=== PATIENT | male | born 2000 | race Hispanic/Latino ===

== ENCOUNTER 2018-02-07 00:17 | Emergency (ER) | payer OTHER ==
[2018-02-07 01:29] LABS: Absolute Lymphocytes (CBC) 3.5 K/uL (0.7-4.9); Absolute Monocytes 0.9 K/uL (0.1-1.3); Absolute Neutrophil 7.4 K/uL (1.8-8.0); Basophils % 0.5 % (0-1.3); Eosinophils % 1.5 % (0-4.4); Hematocrit 48.2 % (39.6-49.0); Lymphocytes % 29.5 % (15.3-44.8); MPV 8.1 fL (7.6-11.3); Monocytes % 7.2 % (3.3-12.3); RBC Red Blood Cell Count 5.55 M/uL (4.33-5.43)
[2018-02-07 01:48] LABS: ALT/SGPT 37 U/L (12-78); AST/SGOT 22 U/L (15-37); Albumin 4.2 g/dL (3.4-5.0); Alkaline Phosphatase 97 U/L (45-117); BUN Blood Urea Nitrogen 20 mg/dL (7-18); Bicarbonate 28 mmol/L (21-32); Bilirubin Direct 0.2 mg/dL (0-0.2); Bilirubin Total 0.7 mg/dL (0.2-1.0); Glucose Level 114 mg/dL (74-106); Lipase 780 U/L (73-393); Potassium 3.9 mmol/L (3.5-5.1); Protein, Total 7.4 g/dL (6.4-8.2); Sodium Level 140 mmol/L (136-145)
[2018-02-07 02:08] LABS: Urine Blood NEGATIVE (NEG); Urine Glucose NEGATIVE (NEG); Urine Protein NEGATIVE (NEG); Urine Specific Gravity 1.025 (1.005-1.030); Urine pH 6.5 (5.0-7.0)
--- NOTE | 2018-02-07 05:13 | EDPHYS ---
Physician Documentation [facility] Name: Vishnu Duckworth Jr Age: 17 yrs Sex: Male : 2000 Arrival Date: 02/07/2018 Time: 00:21 Bed 5 Private MD: ED Physician Sanjiv Krishnan HPI: 02/07 01:19 This 17 yrs old Male presents to ER via Ambulatory with complaints of Flank jr8 Pain. 01:19 The patient complains of pain in the left flank. The pain does not radiate. Onset: The jr8 symptoms/episode began/occurred acutely, today. Modifying factors: The symptoms are alleviated by nothing. the symptoms are aggravated by nothing. Associated signs and symptoms: The patient has no apparent associated signs or symptoms. Severity of pain: At its worst the pain was mild in the emergency department the pain is unchanged. The patient has not experienced similar symptoms in the past. The patient has not recently seen a physician. 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 - Social history:: Smoking status: Patient/guardian denies using tobacco. - Ebola Screening: : No symptoms or risks identified at this time. ROS: 01:19 Eyes: Negative for injury, pain, redness, and discharge, ENT: Negative for injury, jr8 pain, and discharge, Neck: Negative for injury, pain, and swelling, Cardiovascular: Negative for chest pain, palpitations, and edema, Respiratory: Negative for shortness of breath, cough, wheezing, and pleuritic chest pain, Abdomen/GI: Negative for abdominal pain, nausea, vomiting, diarrhea, and constipation, MS/Extremity: Negative for injury and deformity, Skin: Negative for injury, rash, and discoloration, Neuro: Negative for headache, weakness, numbness, tingling, and seizure. 01:19 Back: Positive for flank pain, on the left. Exam: 01:19 Eyes: Pupils equal round and reactive to light, extra-ocular motions intact. Lids and jr8 lashes normal. Conjunctiva and sclera are non-icteric and not injected. Cornea within normal limits. Periorbital areas with no swelling, redness, or edema. ENT: Nares patent. No nasal discharge, no septal abnormalities noted. Tympanic membranes are normal and external auditory canals are clear. Oropharynx with no redness, swelling, or masses, exudates, or evidence of obstruction, uvula midline. Mucous membranes moist. Neck: Trachea midline, no thyromegaly or masses palpated, and no cervical lymphadenopathy. Supple, full range of motion without nuchal rigidity, or vertebral point tenderness. No Meningismus. Cardiovascular: Regular rate and rhythm with a normal S1 and S2. No gallops, murmurs, or rubs. Normal PMI, no JVD. No pulse deficits. Respiratory: Lungs have equal breath sounds bilaterally, clear to auscultation and percussion. No rales, rhonchi or wheezes noted. No increased work of breathing, no retractions or nasal flaring. Back: No spinal tenderness. No costovertebral tenderness. Full range of motion. Skin: Warm, dry with normal turgor. Normal color with no rashes, no lesions, and no evidence of cellulitis. MS/ Extremity: Pulses equal, no cyanosis. Neurovascular intact. Full, normal range of motion. Neuro: Awake and alert, GCS 15, oriented to person, place, time, and situation. Cranial nerves II-XII grossly intact. Motor strength 5/5 in all extremities. Sensory grossly intact. Cerebellar exam normal. Normal gait. 01:19 Abdomen/GI: Inspection: scar(s), are noted in the , Bowel sounds: active, all quadrants, Palpation: soft, in all quadrants, mild abdominal tenderness, in the anterior aspect of left lateral abdomen and posterior aspect of left lateral abdomen, mass, is not appreciated, rebound tenderness, is not appreciated, voluntary guarding, is not appreciated, involuntary guarding, is not appreciated, no appreciated organomegaly, Indicators: McBurney's point is not tender, Baig's sign is negative, Rovsing's sign is negative, Liver: tenderness, is not appreciated. Vital Signs: 00:34 BP 139 / 82; Pulse 92; Resp 16 S; Temp 98.3(O); Pulse Ox 99% on R/A; Weight 46.72 kg bb (R); Height 4 ft. 11 in. (149.86 cm) (R); Pain 9/10; 00:34 Body Mass Index 20.80 (46.72 kg, 149.86 cm) bb MDM: 00:26 Patient medically screened. [facility] 04:07 Transition of care: After a detail discussion of the patient's case, care is jr8 transferred to Sanjiv Krishnan MD. 05:10 Data reviewed: vital signs, nurses notes, lab test result(s), radiologic studies. gs Response to treatment: the patient's symptoms have resolved after treatment, and as a result, I will discharge patient. ED course: pt seen and examined non surgical abdomen no vomiting. 02/07 00:39 Order name: Basic Metabolic Panel 8 02/07 00:39 Order name: CBC with Diff; Complete Time: jr8 02/07 00:39 Order name: Creatinine for Radiology; Complete Time: jr8 02/07 00:39 Order name: Hepatic Function; Complete Time: :49 jr8 02/07 00:39 Order name: Lipase; Complete Time: jr8 02/07 00:39 Order name: Basic Metabolic Panel; Complete Time: 01:49 EDKS 02/07 00:39 Order name: IV Saline Lock; Complete Time: :11 jr8 02/07 00:39 Order name: Labs collected and sent; Complete Time: :11 jr8 02/07 01:01 Order name: Urine Dipstick--Ancillary (enter results); Complete Time: 02:16 ak1 02/07 01:50 Order name: CT Abd/Pelvis - W/Contrast; Complete Time: 15:16 Administered Medications: No medications were administered Disposition: 05:10 Co-signature as Attending Physician, Sanjiv Krishnan MD. Disposition: 02/07/18 05:12 Discharged to Home. Impression: Abdominal and pelvic pain. - Condition is Stable. - Discharge Instructions: Clear Liquid Diet, Adult, Abdominal Pain, Adult, Svfy-wi-Asen. - Prescriptions for Zofran 4 mg Oral Tablet - take 1 tablet by ORAL route every 12 hours As needed; 6 tablet. - Medication Reconciliation Form, Thank You Letter, Antibiotic Education, Prescription Opioid Use form. - Follow up: Private Physician; When: 2 - 3 days; Reason: Re-evaluation by your physician. Signatures: Dispatcher [employer] Becca Norton, RN RN Bandar Azevedo PA PA jr8 Meaghan Horton RN RN ak1 Sanjiv Krishnan MD MD gs Corrections: (The following items were deleted from the chart) 05:24 05:12 02/07/2018 05:12 Discharged to Home. Impression: Abdominal and pelvic pain. ak1 Condition is Stable. Forms are Medication Reconciliation Form, Thank You Letter, Antibiotic Education, Prescription Opioid Use. Follow up: Private Physician; When: 2 - 3 days; Reason: Re-evaluation by your physician. gs
--- NOTE | 2018-02-07 05:13 | ER ---
Nurse's Notes [facility] Name: Vishnu Duckworth Jr Age: 17 yrs Sex: Male : 2000 Arrival Date: 02/07/2018 Time: 00:21 Bed 5 Private MD: Diagnosis: Abdominal and pelvic pain Presentation: 02/07 00:33 Presenting complaint: Mother states: pt is c/o left flank pain starting today which bb worsened tonight pt denies dysuria. Transition of care: patient was not received from another setting of care. Onset of symptoms was February 07, 2018. Risk Assessment: Do you want to hurt yourself or someone else? Patient reports no desire to harm self or others. Initial Sepsis Screen: Does the patient meet any 2 criteria? No. Patient's initial sepsis screen is negative. Does the patient have a suspected source of infection? No. Patient's initial sepsis screen is negative. Care prior to arrival: None. 00:33 Method Of Arrival: Ambulatory bb 00:33 Acuity: BROWN 3 bb Triage Assessment: 01:02 General: Appears in no apparent distress. Behavior is calm, cooperative. Pain: ak1 Complains of pain in left side pain. EENT: No signs and/or symptoms were reported regarding the EENT system. Neuro: No deficits noted. Cardiovascular: No deficits noted. Respiratory: No deficits noted. GI: Abdomen is flat, non-distended, Bowel sounds present X 4 quads. Abd is soft and non tender X 4 quads. : No signs and/or symptoms were reported regarding the genitourinary system. Derm: No signs and/or symptoms reported regarding the dermatologic system. Musculoskeletal: Range of motion: intact in all extremities. 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 - Social history:: Smoking status: Patient/guardian denies using tobacco. - Ebola Screening: : No symptoms or risks identified at this time. Screenin:01 Abuse screen: Denies threats or abuse. Denies injuries from another. Nutritional ak1 screening: No deficits noted. Tuberculosis screening: No symptoms or risk factors identified. Fall Risk None identified. Assessment: 01:03 Reassessment: Patient appears in no apparent distress at this time. No changes from ak1 previously documented assessment. see triage assessment. Vital Signs: 00:34 BP 139 / 82; Pulse 92; Resp 16 S; Temp 98.3(O); Pulse Ox 99% on R/A; Weight 46.72 kg bb (R); Height 4 ft. 11 in. (149.86 cm) (R); Pain 9/10; 00:34 Body Mass Index 20.80 (46.72 kg, 149.86 cm) bb ED Course: 00:21 Patient arrived in ED. al2 00:25 Meaghan Horton, RN is Primary Nurse. ak1 00:26 Bandar Rivera PA is PHCP. jr8 00:26 Sanjiv Krishnan MD is Attending Physician. jr8 00:33 Triage completed. bb 00:34 Arm band placed on Patient placed in an exam room, on a stretcher, on pulse oximetry. bb Family accompanied patient. 01:02 Patient has correct armband on for positive identification. Placed in gown. Bed in low ak1 position. Call light in reach. Side rails up X 1. Pulse ox on. NIBP on. 01:12 Initial lab(s) drawn, by ED staff, sent to lab. Urine collected: clean catch specimen, ak1 clear. Inserted saline lock: 22 gauge in right forearm, using aseptic technique. Blood collected. 03:[address] via wheelchair. kw1 04:05 CT completed. Patient tolerated procedure well. Patient moved back from [place]. kw1 04:08 CT Abd/Pelvis - W/Contrast In Process Unspecified. EDMS 05:21 No provider procedures requiring assistance completed. IV discontinued, intact, ak1 bleeding controlled, No redness/swelling at site. Pressure dressing applied. Administered Medications: No medications were administered Outcome: 05:12 Discharge ordered by . gs 05:21 Discharged to home ambulatory, with family. ak1 05:21 Condition: good 05:21 Discharge instructions given to family, Instructed on discharge instructions, follow up and referral plans. no drinking with medication, no driving heavy equipment, medication usage, Demonstrated understanding of instructions, follow-up care, medications, Prescriptions given X 1. 05:24 Patient left the ED. ak1 Signatures: Dispatcher [employer] EDBecca Delgadillo RN RN Bandar Azevedo PA PA jr8 Meaghan Horton RN RN ak1 Sanjiv Krishnan MD MD Teresa Forte1 Neetu Angulo
[2018-02-07 05:40] VITALS: BP 139/82; TEMP 98.3; O2SAT 99
--- NOTE | 2018-02-07 10:28 | RAD REPORT ---
EXAM DESCRIPTION: CTAbdomen Pelvis W Contrast - 02/07/2018 5:31 am CLINICAL HISTORY: Abdominal pain. iv only;Abd pain COMPARISON: CT ABD PELVIS W CONTRAST dated 07/08/2011 TECHNIQUE: Biphasic CT imaging of the abdomen and pelvis was performed with 100 ml non-ionic IV cont rast. All CT scans are performed using dose optimization technique as appropriate and may include automated exposure control or mA/KV adjustment according to patient size. FINDINGS: The lung bases are clear.Small paraesophageal hiatal hernia. The liver, spleen, pancreas, adrenal glands and kidneys are within normal limits. No bowel obstruction, free air, free fluid or abscess. The appendix is normal. No evidence of signi ficant lymphadenopathy. No suspicious bony findings. IMPRESSION: No acute intra-abdominal or pelvic finding.
== END 2018-02-07 05:24 | disposition home or self-care (01) ==
LOC: ER 00:17
DX: R10.2 Pelvic and perineal pain (principal)
CPT/HCPCS: 36415; 74177; 80048; 80076; 81003; 83690; 85025; 99284; Q9967

== ENCOUNTER 2019-04-21 10:45 | Emergency (ER) | payer OTHER ==
--- OUTSIDE RECORDS SUMMARY | 2019-04-21 10:47 | XMS REPORT ---
:2000 [facility] [address] [place] [address] Care Team Providers Name Role Phone DR ZEV SCHWARZ Unavailable Unavailable BA, DR MONTANO Unavailable Unavailable AGUILERA, DR THURSTON Unavailable Unavailable SERGO CARDENAS Unavailable Unavailable Problems This patient has no known problems. Allergies, Adverse Reactions, Alerts This patient has no known allergies or adverse reactions. Medications This patient has no known medications. Encounters Start End Encounter Admission Attending Care Care Encounter Date/Time Date/Time Type Type Clinicians Facility Department ID 2019-03-21 2019-03-21 Outpatient E [facility] [id number] 18:26:00 18:50:00 ZEV 2019-01-22 2019-01-22 Outpatient E [facility] [id number] 10:06:00 11:13:00 2016-11-01 2016-11-01 Emergency E EBRTRAND AGUILERA [facility] [id number] 14:00:00 15:00:00 Results Test Description Test Time Test Comments Text Results Atomic Results Result Comments XR SPINE LUMBAR COMPLETE 2019-01-22 10:34:39 EXAM: Lumbar spine series, 5 *OW* viewsDictation location: [id number]: PainCOMPARISON: None.DISCUSSION: Frontal, bilateral oblique, spot lateral, and lateral views of thelumbar spine are submitted. There are 5 lumbar-type [id number] vertebralbodies. No fracture or osteolytic or osteoblastic lesions are identified. Discspace height is well preserved. Facet joints are unremarkable. No spondylolysisor spondylolisthesis is seen. Straightening of lumbar lordosis is noted.IMPRESSION: Straightening of lumbar lordosis. Otherwise, unremarkable lumbarspine radiographs. URINALYSIS W/O MICROSCOPICOW 2019-01-22 10:27:00 Test Item Value Reference Range Comments COLOR (test code=COLU) Yellow YELLOW CLARITY (test code=CLA) Clear CLEAR GLUCOSE UR (test code=UA GLUCOSE) Negative NEGATIVE BILI UR (test code=BILE) Negative NEGATIVE KETONES UR (test code=DEBRA) Negative NEGATIVE SP GRAVITY (test code=SPGR) 1.020 1.005-1.030 PH UR (test code=PH) 7.0 4.5-8.0 PROTEIN UR (test code=PU) Negative NEGATIVE NITRITE UR (test code=NITRITE) Negative NEGATIVE UROBIL UR (test code=GUROQ) 2.0 E.U./dL UROBIL UR (test code=GUROQC) UROBILINOGEN REFERENCE RANGE 0.2 - 1.0 EU/dL BLOOD UR (test code=UA BLOOD) Negative NEGATIVE LEUK ES UR (test code=LEUK) Negative NEGATIVE CT ABDOMEN AND PELVIS WITH [id number] 13:08:17LOCATION: [id number]: 15- year-old male presents with right lower quadrant abdominal pain.COMMENT: Field 3Axial CT imaging of this patient's abdomen and pelvis was obtained during IVcontrast injection. Coronal and sagittal soft tissue reconstructions wereincluded. An older examination of 10/14/14 is available for comparison.One or more of the following dose reduction techniques are used: Automatedexposure control, adjustment of the mA and/or kV according the patient size,and/or utilization of iterative reconstruction technique.DLP: 780 mGy-cmCONTRAST: 98 mL of Omnipaque 300 nonionic contrast was injected patient's righthand. Serum creatinine level was 0.9.FINDINGS:The lung bases are clear. The cardiac silhouette is unremarkable.The liver, spleen, pancreas, adrenal glands, kidneys , and gallbladder areunremarkable.The upper intestinal tract and small intestine are unremarkable. Anormal-appearing appendix is seen.The colon is unremarkable.There is no ascites or adenopathy seen in the abdomen or thepelvis.In the pelvis the urinary bladder, prostate gland, seminal vesicles areunremarkable.The vascular anatomy is unremarkable.The musculoskeletal anatomy is unremarkable.IMPRESSION:Unremarkable CT examination of the abdomen and pelvis.AMYLASE AND [id number] 12:28:00 Test Item Value Reference Range Comments AMYLASE (test code=10A) 58 U/L 28-100 LIPASE (test code=60A) 63 IU/L 73-393 COMPREHENSIVE METABOLIC [id number] 12:28:00 Test Item Value Reference Range Comments GLUCOSE (test code=06D) 92 mg/dL 75-100 SODIUM (test code=01A) 143 mmol/L 136-145 POTASSIUM (test code=01B) 4.9 mmol/L 3.6-5.1 CHLORIDE (test code=04A) 105 mmol/L 98-107 CO2 (test code=02A) 29 mmol/L 22-32 ANION GAP (test code=ANG) 13.9 mmol/L BUN (test code=05D) 14 mg/dL 7-18 CREATININE (test code=03E) 0.9 mg/dL 0.7-1.3 BUN/CREA R (test code=BCR) 15 12-20 CALCIUM (test code=09D) 8.9 mg/dL 8.3-9.5 BILI TOTAL (test code=11A) 1.2 mg/dL 0.2-1.0 PROTEIN (test code=07D) 7.3 g/dL 6.0-8.0 ALBUMIN (test code=08D) 4.1 g/dL 3.5-4.8 GLOBULIN (test code=GLB) 3.2 g/dL 1.5-3.8 ALB/GLOB (test code=AGRR) 1.3 1.0-2.6 ALK PHOS (test code=35A) 95 IU/L 42-121 AST (test code=30A) 28 IU/L <=42 ALT (test code=31A) 26 IU/L <=78 URINALYSIS WITH [id number] 12:12:00 Test Item Value Reference Range Comments COLOR (test code=COLU) YELLOW YELLOW CLARITY (test code=CLA) CLOUDY CLEAR GLUCOSE UR (test code=UA GLUCOSE) NEGATIVE NEGATIVE BILI UR (test code=BILE) NEGATIVE NEGATIVE KETONES UR (test code=DEBRA) NEGATIVE NEGATIVE SP GRAVITY (test code=SPGR) 1.018 1.005-1.030 PH UR (test code=PH) 7.5 4.5-8.0 PROTEIN UR (test code=PU) TRACE NEGATIVE UROBIL UR (test code=UROQ) 1.0 EU/dL 0.2-1.0 NITRITE UR (test code=NITRITE) NEGATIVE NEGATIVE BLOOD UR (test code=UA BLOOD) NEGATIVE NEGATIVE LEUK ES UR (test code=LEUK) 1+ NEGATIVE WBC UR (test code=UWBC) 2 /HPF 0-3 RBC UR (test code=URBC) 0 /HPF 0-2 EPITH UR (test code=UEPC) FEW /LPF NONE BACTERIA UR (test code=UBACT) MODERATE /HPF NONE CAST UR (test code=CAST) /LPF NONE CRYSTAL UR (test code=CRYU) / LPF NONE MUCUS UR (test code=MUC) / HPF NONE AMORPH UR (test code=JUAN CARLOS) / HPF NONE TRICH UR (test code=UTRICH) /HPF NONE YEAST UR (test code=UY) /HPF NONE SPERM UR (test code=USPERM) /HPF NONE CBC (INCLUDES AUTOMATED DIFFERENTIAL)2016-08-09 12:10:00 Test Item Value Reference Range Comments WBC (test code=WBC) 9.5 10\S\3/uL 4.5-13.0 RBC (test code=RBC) 5.39 10\S\6/uL 4.10-5.20 HGB (test code=HBG) 16.5 g/dL 11.5-15.5 HCT (test code=HCT) 45.3 % 35.0-45.0 MCV (test code=MCV) 84.0 fL 77.0-95.0 MCH (test code=MCH) 30.6 pg 25.0-33.0 MCHC (test code=MCHC) 36.4 g/dL 31.0-37.0 RDW (test code=RDW) 12.1 % 11.5-14.5 PLT (test code=PLT) 281 10\S\3/uL 130-400 MPV (test code=MPV) 9.8 fL 9.4-12.4 NEUTROP # (test code=NE#) 6.5 10\S\3/uL 2.0-8.0 LYMPH # (test code=LY#) 2.3 10\S\3/uL 1.2-4.0 MONOCYTE # (test code=MO#) 0.6 10\S\3/uL 0.0-1.1 EOSINOPH # (test code=EO#) 0.1 10\S\3/uL 0.0-0.7 BASOPHIL # (test code=BA#) 0.1 10\S\3/uL 0.0-0.3 IG # (test code=IG#) 0.03 10\S\3/uL 0.00-0.06 NRBC # (test code=NRBC#) 0.00 10\S\3/uL 0.00-0.01 NEUTROPH % (test code=NE%) 68.1 % 35.0-73.0 LYMPH % (test code=LY%) 24.0 % 20.0-55.0 MONO % (test code=MO%) 6.2 % 2.5-10.0 EOSINOPH % (test code=EO%) 0.9 % 0.0-5.0 BASOPHIL % (test code=BA%) 0.5 % 0.0-2.0 IG % (test code=IG%) 0.3 % 0.0-0.8 NRBC% (test code=NRBC%) 0.0 % 0.0-0.2 MANDIFF (test code=MDIFF) NO NO RBC MORPH (test code=RBCMOR) NORMAL
[2019-04-21] MEDS ORDERED: LIDOCAINE 1% MPF 30 ML VIAL ONE (11:44)
--- NOTE | 2019-04-21 12:19 | EDPHYS ---
Physician Documentation [facility] Name: Vishnu Duckworth Jr Age: 18 yrs Sex: Male : 2000 Arrival Date: 04/21/2019 Time: 10:49 Bed 25 Private MD: ED Physician Karlo Latham HPI: 04/20 11:15 This 18 yrs old Male presents to ER via Ambulatory with complaints of Ingrown cp Toenail. 11:15 Onset: The symptoms/episode began/occurred at an unknown time. Associated signs and cp symptoms: Pertinent negatives: fever. Historical: - Allergies: 11:02 No Known Allergies; aj1 - Home Meds: 11:02 None [Active]; aj1 - PMHx: 11:02 Premature ; aj1 - PSHx: 11:02 "surgery for twisted intestines"; aj1 - Immunization history:: Flu vaccine is up to date. - Social history:: Smoking status: Patient denies any tobacco usage or history of. ROS: 11:20 Eyes: Negative for injury, pain, redness, and discharge. cp 11:20 Constitutional: Negative for fever, poor PO intake. 11:20 Cardiovascular: Negative for chest pain. 11:20 Respiratory: Negative for cough. 11:20 MS/extremity: Positive for pain, of the right great toe, Negative for injury or acute deformity, decreased range of motion. 11:20 All other systems are negative. Exam: 11:30 Constitutional: The patient appears in no acute distress, alert, awake, non-toxic, well cp developed, well nourished. 11:30 Musculoskeletal/extremity: Extremities: grossly normal except: noted in the right great toe: erythema, pain, swelling, tenderness, ROM: full active range of motion, in the right great toe, Perfusion: the extremity is normally perfused throughout, Sensation intact. 11:30 Skin: cellulitis, that is mild, on the along lateral aspect nail right great toe. cp Vital Signs: 10:59 BP 140 / 71; Pulse 96; Resp 18; Temp 97.5; Pulse Ox 98% on R/A; Weight 47.63 kg (R); aj1 Height 4 ft. 11 in. (149.86 cm) (R); Pain 0/10; 10:59 Body Mass Index 21.21 (47.63 kg, 149.86 cm) aj1 MDM: 11:04 Patient medically screened. cp 12:00 Differential diagnosis: abscess, cellulitis, ingrown nail. cp 12:18 Data reviewed: vital signs, nurses notes, and as a result, I will discharge patient. cp 12:18 Counseling: I had a detailed discussion with the patient and/or guardian regarding: the cp historical points, exam findings, and any diagnostic results supporting the discharge/admit diagnosis, the need for outpatient follow up, a family practitioner, to return to the emergency department if symptoms worsen or persist or if there are any questions or concerns that arise at home. Response to treatment: the patient's symptoms have markedly improved after treatment. 04/20 11:10 Order name: I\\T\\D Setup; Complete Time: 11:45 cp 04/20 12:18 Order name: Wound dressing; Complete Time: 12:42 cp Administered Medications: 11:55 Drug: Marcaine (0.5 %) 10 ml {Note: administered by PA. Laura} Volume: 10 ml; Route: aj1 Infiltration; 11:55 Drug: Lidocaine (1 %) 10 ml {Note: Administered by PA. Laura} Volume: 5 ml; Route: aj1 Infiltration; Disposition: 12:50 Chart complete. cp Disposition: 04/21/19 12:19 Discharged to Home. Impression: Ingrowing nail - right great toe. - Condition is Stable. - Discharge Instructions: Ingrown Toenail, Fingernail or Toenail Removal, Adult, Fingernail or Toenail Removal, Care After. - Prescriptions for Ibuprofen 600 mg Oral Tablet - take 1 tablet by ORAL route every 6 hours As needed take with food; 30 tablet. Bactrim DS 800- 160 mg Oral Tablet - take 1 tablet by ORAL route every 12 hours for 10 days; 20 tablet. - Medication Reconciliation Form, Thank You Letter, Antibiotic Education, Prescription Opioid Use form. - Follow up: Private Physician; When: 2 - 3 days; Reason: Wound Recheck. - Problem is new. - Symptoms have improved. Addendum: 04/24/2019 10:44 Co-signature as Attending Physician, Karlo Latham MD I agree with the assessment and k dr plan of care. Signatures: Wilda Bernardo RN RN aj1 Rittger, Karlo, MD Florentin Skaggs PA PA cp Corrections: (The following items were deleted from the chart) 04/20 12:44 12:19 04/21/2019 12:19 Discharged to Home. Impression: Ingrowing nail - right great aj1 toe. Condition is Stable. Forms are Medication Reconciliation Form, Thank You Letter, Antibiotic Education, Prescription Opioid Use. Follow up: Private Physician; When: 2 - 3 days; Reason: Wound Recheck. Problem is new. Symptoms have improved. cp
--- NOTE | 2019-04-21 12:19 | ER ---
Nurse's Notes [facility] Name: Vishnu Duckworth Jr Age: 18 yrs Sex: Male : 2000 Arrival Date: 04/21/2019 Time: 10:49 Bed 25 Private MD: Diagnosis: Ingrowing nail-right great toe Presentation: 04/20 10:59 Chief complaint: Parent and/or Guardian states: He has an ingrown toe nail, today they aj1 noticed some blood on pus draining from it. Coronavirus screen: The patient has NOT traveled to a country currently being monitored by the [facility] within the last 14 days. Ebola Screen: Patient denies travel to an Ebola-affected area in the 21 days before illness onset. Initial Sepsis Screen: Does the patient meet any 2 criteria? HR > 90 bpm. No. Patient's initial sepsis screen is negative. Does the patient have a suspected source of infection? Yes: Other: infected ingrown toenail. Risk Assessment: Do you want to hurt yourself or someone else? Patient reports no desire to harm self or others. 10:59 Method Of Arrival: Ambulatory aj1 10:59 Acuity: BROWN 4 aj1 Triage Assessment: 11:02 General: Appears in no apparent distress. comfortable, Behavior is calm, cooperative, aj1 appropriate for age. Pain: Denies pain. Historical: - Allergies: 11:02 No Known Allergies; aj1 - Home Meds: 11:02 None [Active]; aj1 - PMHx: 11:02 Premature ; aj1 - PSHx: 11:02 "surgery for twisted intestines"; aj1 - Immunization history:: Flu vaccine is up to date. - Social history:: Smoking status: Patient denies any tobacco usage or history of. Screenin:05 Abuse screen: Denies threats or abuse. Denies injuries from another. Nutritional aj1 screening: No deficits noted. Tuberculosis screening: No symptoms or risk factors identified. 12:43 Fall Risk None identified. aj1 Assessment: 11:05 General: Appears in no apparent distress. comfortable, Behavior is calm, cooperative, aj1 appropriate for age. Pain: Denies pain. Neuro: Level of Consciousness is awake, alert, obeys commands, Oriented to person, place, time, situation. Cardiovascular: Patient's skin is warm and dry. Respiratory: Airway is patent Respiratory effort is even, unlabored, Respiratory pattern is regular, symmetrical. GI: No signs and/or symptoms were reported involving the gastrointestinal system. : No signs and/or symptoms were reported regarding the genitourinary system. EENT: No signs and/or symptoms were reported regarding the EENT system. Derm: Skin is pink, warm \\T\\ dry. normal, ingrown toe nail to right great toe. Musculoskeletal: No signs and/or symptoms reported regarding the musculoskeletal system. Circulation, motion, and sensation intact. 12:05 Reassessment: Patient appears in no apparent distress at this time. No changes from aj1 previously documented assessment. Patient and/or family updated on plan of care and expected duration. Pain level reassessed. Patient is alert, oriented x 3, equal unlabored respirations, skin warm/dry/pink. Vital Signs: 10:59 BP 140 / 71; Pulse 96; Resp 18; Temp 97.5; Pulse Ox 98% on R/A; Weight 47.63 kg (R); aj1 Height 4 ft. 11 in. (149.86 cm) (R); Pain 0/10; 10:59 Body Mass Index 21.21 (47.63 kg, 149.86 cm) aj1 ED Course: 10:49 Patient arrived in ED. rg4 10:59 Wilda Bernardo, RN is Primary Nurse. aj1 11:00 Triage completed. aj1 11:02 Arm band placed on. aj1 11:03 Florentin Gaytan PA is PHCP. cp 11:03 Karlo Latham MD is Attending Physician. cp 11:05 Patient has correct armband on for positive identification. Bed in low position. Call aj1 light in reach. Side rails up X 1. 11:05 No provider procedures requiring assistance completed. aj1 12:43 Patient did not have IV access during this emergency room visit. aj1 Administered Medications: 11:55 Drug: Marcaine (0.5 %) 10 ml {Note: administered by PA. Laura} Volume: 10 ml; Route: aj1 Infiltration; 11:55 Drug: Lidocaine (1 %) 10 ml {Note: Administered by PA. Laura} Volume: 5 ml; Route: aj1 Infiltration; Outcome: 12:19 Discharge ordered by . cp 12:43 Discharged to home ambulatory. aj1 12:43 Condition: good 12:43 Discharge instructions given to patient, family, Instructed on discharge instructions, follow up and referral plans. medication usage, Demonstrated understanding of instructions, follow-up care, medications, Prescriptions given X 1. 12:44 Patient left the ED. aj1 Signatures: Wilda Bernardo RN RN aj1 Florentin Gaytan PA PA cp Garcia, Rubi rg4 Corrections: (The following items were deleted from the chart) 11:55 11:55 Lidocaine (1 %) 10 ml 5 ml Infiltration 5 ml aj1 aj1
[2019-04-21 12:49] VITALS: BP 140/71; TEMP 97.5; O2SAT 98
== END 2019-04-21 12:44 | disposition home or self-care (01) ==
LOC: ER 10:45
DX: L60.0 Ingrowing nail (principal)
CPT/HCPCS: 99283

== ENCOUNTER 2022-01-22 19:50 | Emergency (ER) | payer OTHER ==
--- OUTSIDE RECORDS SUMMARY | 2022-01-22 19:54 | XMS REPORT | Continuity of Care Document ---
:2000 Author Organization [facility] t Address [address] [place] [address] Care Team Providers Name Role Phone JANE AGUILERA Primary Care Physician Unavailable ERBEKAH, DR VALENCIA Attending Clinician Unavailable CHAN LOCKE Attending Clinician Unavailable MARY, DR MONTANO Attending Clinician Unavailable DR SERGO CARDENAS Attending Clinician Unavailable KARISHMA, DR BROTHERS Attending Clinician Unavailable WILLY, DR THURSTON Attending Clinician Unavailable REBEKAH, DR VALENCIA Admitting Clinician Unavailable CHAN LOCKE Admitting Clinician Unavailable MARY, DR MONTANO Admitting Clinician Unavailable RONALD, DR SERGO [place] Admitting Clinician Unavailable KARISHMA, DR BROTHERS Admitting Clinician Unavailable WILLY, DR THURSTON Admitting Clinician Unavailable Payers Payer Name Policy Type Policy Number Effective Date Expiration Date S ource 0733 [id number] 2021 00:00:00 0775 [id number] 2016 00:00:00 Problems This patient has no known problems. Allergies, Adverse Reactions, Alerts Allergy Allergy Status Severity Reaction(s) Onset Inactive Treating Comm ents Source Name Type Date Date Clinician No Known DA Active Unknown [facility] Allergie 10-14 Medical s 00:00: Center 00 Medications This patient has no known medications. Vital Signs Vital Name Observation Time Observation Value Comments Source Height 2021-08-27 11:24:00 149.86 CM Weight 2021-08-27 11:24:00 51.7 KG Height 2021-02-08 17:03:00 147.32 CM Weight 2021-02-08 17:03:00 47.62 KG Height 2020-12-13 11:48:00 149.86 CM Weight 2020-12-13 11:48:00 54.43 KG Weight 2019-05-17 16:44:00 48.98 KG Weight 2019-04-29 14:43:00 47.62 KG Height 2019-03-21 18:33:00 160.02 CM Weight 2019-03-21 18:33:00 48.5 KG Height 2019-01-22 10:06:00 147.32 CM Weight 2019-01-22 10:06:00 47.62 KG Procedures This patient has no known procedures. Encounters Start End Encounter Admission Attending Care Care Encounter Source Date/Time Date/Time Type Type Clinicians Facility Department ID 2021-08-27 2021-08-27 Outpatient E REBEKAH [facility] [id number] 11:08:00 12:00:00 [facility] 2021-08-22 2021-08-22 Outpatient C CORNELIA [facility] [id number] 08:47:00 23:59:00 [facility] 2021-02-08 2021-02-08 Outpatient E BA, CHARMAINE [facility] [id number] 16:46:00 18:19:00 [facility] 2020-12-13 2020-12-13 Outpatient E RONALD [facility] [id number] [place] 11:36:00 13:08:00 SERGO [facility] 2019-05-17 2019-05-17 Outpatient E BA, CHARMAINE [facility] [id number] 16:29:00 18:06:00 [facility] 2019-04-29 2019-04-29 Outpatient E BA, CHARMAINE [facility] [id number] 14:32:00 15:03:00 [facility] 2019-03-21 2019-03-21 Outpatient E KARISHMA [facility] [id number] [place] 18:26:00 18:50:00 ZEV [facility] 2019-01-22 2019-01-22 Outpatient E BA, CHARMAINE [facility] [id number] 10:06:00 11:13:00 [facility] 2016-11-01 2016-11-01 Emergency E AGUILERA BERTRAND [facility] [id number] [place] 14:00:00 15:00:00 [facility] Results Test Description Test Time Test Comments Results Result Comments Source SARS-CoV (RAPID ANTIGEN) WH 2021-08-27 11:51:00 Test Item Value Reference Range Interpretation Comme nts SARS-CoV (ANTIGEN) (test code = POSITIVE NEGATIVE AA COVAG) COVID AG (test code = COVAGC) This test has been marketed under the FDA Emergency Use Authorization (EUA) to meet challenges of the COVID-19 pandemic. The validation standards normally enforced by the FDA and the [employer] of the [employer] (CAP) are more stringent than those required for this test. Therefore, the result should be interpreted with caution and close attention to other clinical and epidemiological data DIRECT STREP GROUP AOW2021-08-27 11:45:00 Test Item Value Reference Range Interpretation Comments Strep A Ag (test code = STREP) NEGATIVE NEGATIVE U/S KIDNEY (RENAL) *OW*2021-08-22 11[facility]19:37 [facility] 2000 Sex: MEXAMINATION: US KI DNEY BILATERAL.HISTORY: Microscopic hematuria.COMPARISON: None.FINDINGS: Examination is limited due to patient cooperation during image acquisition.Sonographic evaluation of the kidneys and bladder wasperformed utilizing peck scale, pulse Doppler and color flow imaging.The right kidney measures 8.7 cm and the left kidney measures 8.9 cm. The parenchymal echogenicity is within normal limits on both sides. There is no hydronephrosis. No calculus is identified.Urinary bladder is underdistended with volume of 82 mL and post void residual 2 mL. Bilateral ureteral jets noted.IMPRESSION:No hydronephrosis.Electronically signed by: Adela Harrington MD 08/22/2021 11:19 AM CDT [id number] Panel *OW* [id number] 17:54:00 Test Item Value Reference Range Interpretation Comments GLUCOSE (test code = GGUL) 111 mg/dL 73-118 BUN (test code = GBUN) 13 mg/dL 7-22 CREATININE (test code = GCRE) 0.8 mg/dL 0.6-1.2 CK TOTAL (test code = GCK) 303 U/L 39-380 SODIUM (test code = GNA+) 141 mmol/L 128-145 POTASSIUM (test code = GK+) 3.9 mmol/L 3.6-5.1 CHLORIDE (test code = GCL-) 105 mmol/L 98-108 TCO2 (test code = GTC02) 29 mmol/L 18-33 CBC (INCLUDES AUTOMATED DIFFERENTIAL) *2021-02-08 17:43:00 Test Item Value Reference Range Interpretation Comments WBC (test code = WBC) 8.7 10\S\3/uL 4.5-11.0 RBC (test code = RBC) 5.16 10\S\6/uL 4.30-5.70 HGB (test code = HBG) 15.9 g/dL 14.0-18.0 HCT (test code = HCT) 46.5 % 35.0-46.0 H MCV (test code = MCV) 90.1 fL 80.0-94.0 MCH (test code = MCH) 30.8 pg 27.0-31.0 MCHC (test code = MCHC) 34.2 g/dL 32.0-36.0 RDW (test code = RDW) 12.9 % 11.5-14.5 PLT (test code = PLT) 350 10\S\3/uL 130-400 MPV (test code = OMPV) 7.4 fL 6.2-10.2 NEUTROP # (test code = NE#) 5.5 10\S\3/uL 2.0-8.0 LYMPH # (test code = LY#) 2.3 10\S\3/uL 1.2-4.0 MID # (test code = GMID#) 0.9 10\S\3/uL 0.0-1.1 GRAN % (test code = GRA%) 63.2 % 35.0-73.0 LYMPH % (test code = GLY%) 27.0 % 20.0-55.0 MID % (test code = GMID%) 9.8 % 0.0-10.0 SARS-CoV (RAPID ANTIGEN) WH2020-12-13 12:18:00 Test Item Value Reference Range Interpretation Comments SARS-CoV (ANTIGEN) NEGATIVE NEGATIVE (test code = COVAG) COVID AG (test This test has been code = COVAGC) marketed under the FDA Emergency Use Authorization (EUA) to meet challenges of the COVID-19 pandemic. The validation standards normally enforced by the FDA and the [employer] (CAP) are more stringent than those required for this test. Therefore, the result should be interpreted with caution and close attention to other clinical and epidemiological data DIRECT STREP GROUP AOW2020-12-13 12:13:00 Test Item Value Reference Range Interpretation Comments Strep A Ag (test code = STREP) NEGATIVE NEGATIVE INFLUENZA A AND B OW2020-12-13 12:13:00 Test Item Value Reference Range Interpretation Comments INFLUENZ A (test code = INFA) NEGATIVE NEGATIVE INFLUENZ B (test code = INFB) NEGATIVE NEGATIVE DRUGS OF ABUSE*OW*2019-05-17 17:37:00 Test Item Value Reference Range Interpretation Comments DRUG SCRN (test code URINE DRUG SCREEN = HDOA) This is an unconfirmed screening result and should not be used for non-medical purposes PHENCYCLID (test Negative NEGATIVE code = GPCP) BENZODIAZE (test Negative NEGATIVE code = GBZO) COCAINE (test code = Negative NEGATIVE GCOC) AMPHETAMIN (test Negative NEGATIVE code = GAMP) THC (test code = Negative NEGATIVE GTHC) OPIATES (test code = Negative NEGATIVE JOHN) BARBITURAT (test Negative NEGATIVE code = GBAR) TCA (test code = Negative NEGATIVE GTCA) DOAH (test code = URINE DRUG DOAH) SCREEN CUT OFF VALUES Amphetamines 1000 ng/mL Barbituates 300 ng/mL Benzodiazepines 300 ng/mL Cocaine 300 ng/mL Opiates 300 ng/mL Phencyclidine 25 ng/mL THC 50 ng/mL Tricyclic Antidepressants 1000 ng/mL GENERAL CHEMISTRY 13 *OW* [id number] 17:34:00 Test Item Value Reference Range Interpretation Comments GLUCOSE (test code = GGUL) 125 mg/dL 73-118 H BUN (test code = GBUN) 16 mg/dL 7-22 CREATININE (test code = GCRE) 1.1 mg/dL 0.6-1.2 URIC ACID (test code = GUA) 5.8 mg/dL 3.6-8.0 CALCIUM (test code = GCL+) 10.1 mg/dL 8.0-10.3 ALBUMIN (test code = GALB) 4.0 g/dL 3.5-5.5 PROTEIN (test code = GTP) 7.2 g/dL 6.4-8.1 ALT (test code = GALT) 18 U/L 10-47 AST (test code = NORMA) 30 U/L 11-38 ALK PHOS (test code = GALP) 73 U/L 53-128 BILI TOTAL (test code = GTBIL) 1.4 mg/dL 0.2-1.6 GGT (test code = GGGT) 11 U/L 5-65 AMYLASE (test code = GAMY) 68 U/L 14-97 URINALYSIS W/O MICROSCOPICOW2019-05-17 17:26:00 Test Item Value Reference Range Interpretation Comments COLOR (test code = Yellow YELLOW COLU) CLARITY (test code = Clear CLEAR CLA) GLUCOSE UR (test Negative NEGATIVE code = UA GLUCOSE) BILI UR (test code = Negative NEGATIVE BILE) KETONES UR (test Trace NEGATIVE code = DEBRA) SP GRAVITY (test >=1.030 1.005-1.030 code = SPGR) PH UR (test code = 6.0 4.5-8.0 PH) PROTEIN UR (test 1+ NEGATIVE A code = PU) NITRITE UR (test Negative NEGATIVE code = NITRITE) UROBIL UR (test code 1.0 E.U./dL = GUROQ) UROBIL UR (test code UROBILINOGEN = GUROQC) REFERENCE RANGE 0.2 - 1.0 EU/dL BLOOD UR (test code Negative NEGATIVE = UA BLOOD) LEUK ES UR (test Negative NEGATIVE code = LEUK) [employer] 8 Panel *OW* [id number] 17:21:00 Test Item Value Reference Range Interpretation Comments GLUCOSE (test code = GGUL) 120 mg/dL 73-118 H BUN (test code = GBUN) 15 mg/dL 7-22 CREATININE (test code = GCRE) 1.0 mg/dL 0.6-1.2 CK TOTAL (test code = GCK) 465 U/L 39-380 H SODIUM (test code = GNA+) 143 mmol/L 128-145 POTASSIUM (test code = GK+) 3.6 mmol/L 3.6-5.1 CHLORIDE (test code = GCL-) 105 mmol/L 98-108 TCO2 (test code = GTC02) 30 mmol/L 18-33 CBC (INCLUDES AUTOMATED DIFFERENTIAL) *2019-05-17 17:04:00 Test Item Value Reference Range Interpretation Comments WBC (test code = WBC) 9.2 10\S\3/uL 4.5-13.0 RBC (test code = RBC) 5.21 10\S\6/uL 4.30-5.70 HGB (test code = HBG) 15.6 g/dL 14.0-18.0 HCT (test code = HCT) 48.3 % 35.0-46.0 H MCV (test code = MCV) 92.7 fL 80.0-94.0 MCH (test code = MCH) 29.9 pg 27.0-31.0 MCHC (test code = MCHC) 32.3 g/dL 32.0-36.0 RDW (test code = RDW) 14.5 % 11.5-14.5 PLT (test code = PLT) 275 10\S\3/uL 130-400 MPV (test code = OMPV) 7.8 fL 6.2-10.2 NEUTROP # (test code = NE#) 6.8 10\S\3/uL 2.0-8.0 LYMPH # (test code = LY#) 1.8 10\S\3/uL 1.2-4.0 MID # (test code = GMID#) 0.7 10\S\3/uL 0.0-1.1 GRA % (test code = GRA%) 73.8 % 35.0-73.0 H LYMPH % (test code = GLY%) 19.1 % 20.0-55.0 L MID % (test code = GMID%) 7.1 % 0.0-10.0 XR SPINE LUMBAR COMPLETE *OW*2019-01-22 10:34:39EXAM: Lumbar spine series, 5 viewsDictation location: [id number]: PainCOMPARISON: None.DISCUSSION:Frontal, bilateral oblique, spot lateral, and lateral views of thelumbar spine are submitted. There are 5 lumbar-type [id number] vertebralbodies. No fracture or osteolytic or osteoblastic lesions are identified. Discspace height is well preserved. Facet joints are unremarkable. No spondylolysisorspondylolisthesis is seen. Straightening of lumbar lordosis is noted.IMPRESSION: Straightening of lum bar lordosis. Otherwise, unremarkable lumbarspine radiographs.URINALYSIS W/O MICROSCOPICOW2019-01-22 10:27:00 Test Item Value Reference Range Interpretation Comments COLOR (test code = Yellow YELLOW COLU) CLARITY (test code = Clear CLEAR CLA) GLUCOSE UR (test Negative NEGATIVE code = UA GLUCOSE) BILI UR (test code = Negative NEGATIVE BILE) KETONES UR (test Negative NEGATIVE code = DEBRA) SP GRAVITY (test 1.020 1.005-1.030 code = SPGR) PH UR (test code = 7.0 4.5-8.0 PH) PROTEIN UR (test Negative NEGATIVE code = PU) NITRITE UR (test Negative NEGATIVE code = NITRITE) UROBIL UR (test code 2.0 E.U./dL = GUROQ) UROBIL UR (test code UROBILINOGEN = GUROQC) REFERENCE RANGE 0.2 - 1.0 EU/dL BLOOD UR (test code Negative NEGATIVE = UA BLOOD) LEUK ES UR (test Negative NEGATIVE code = LEUK) CT ABDOMEN AND PELVIS WITH [id number] 13:08:17LOCATION: [id number]: 15-year-old male presents with right lower quadrant abdominal pain.COMMENT: Do rojo 3Axial CT imaging of this patient's abdomen [...] is unremarkable.The liver, spleen, pancreas, adrenal glands, kidneys, and gallbladder areunremarkable.The upper intestinal tract and small intestine are unremarkable. Anormal-appearing appendix is seen.The colon is unremarkable.There is no ascites or adenopathy seen in the abdomen or the pelvis.In the pelvis the urinary bladder, prostate gland, seminal vesicles areunremarkable.The vascular anatomy is unremarkable.The musculoskeletal anatomy is unremarkable.IMPRESSION:Unremarkable CT examination of the abdomen and pelvis.AMYLASE AND [id number] 12:28:00 Test Item Value Reference Range Interpretation Comments AMYLASE (test code = 10A) 58 U/L 28-100 LIPASE (test code = 60A) 63 IU/L 73-393 L COMPREHENSIVE METABOLIC [id number] 12:28:00 Test Item Value Reference Range Interpretation Comments GLUCOSE (test code = 06D) 92 mg/dL 75-100 SODIUM (test code = 01A) 143 mmol/L 136-145 POTASSIUM (test code = 01B) 4.9 mmol/L 3.6-5.1 CHLORIDE (test code = 04A) 105 mmol/L 98-107 CO2 (test code = 02A) 29 mmol/L 22-32 ANION GAP (test code = ANG) 13.9 mmol/L BUN (test code = 05D) 14 mg/dL 7-18 CREATININE (test code = 03E) 0.9 mg/dL 0.7-1.3 BUN/CREA R (test code = BCR) 15 12-20 CALCIUM (test code = 09D) 8.9 mg/dL 8.3-9.5 BILI TOTAL (test code = 11A) 1.2 mg/dL 0.2-1.0 H PROTEIN (test code = 07D) 7.3 g/dL 6.0-8.0 ALBUMIN (test code = 08D) 4.1 g/dL 3.5-4.8 GLOBULIN (test code = GLB) 3.2 g/dL 1.5-3.8 ALB/GLOB (test code = AGRR) 1.3 1.0-2.6 ALK PHOS (test code = 35A) 95 IU/L 42-121 AST (test code = 30A) 28 IU/L <=42 ALT (test code = 31A) 26 IU/L <=78 URINALYSIS WITH [id number] 12:12:00 Test Item Value Reference Range Interpretation Comments COLOR (test code = COLU) YELLOW YELLOW CLARITY (test code = CLA) CLOUDY CLEAR A GLUCOSE UR (test code = UA NEGATIVE NEGATIVE GLUCOSE) BILI UR (test code = BILE) NEGATIVE NEGATIVE KETONES UR (test code = DEBRA) NEGATIVE NEGATIVE SP GRAVITY (test code = SPGR) 1.018 1.005-1.030 PH UR (test code = PH) 7.5 4.5-8.0 PROTEIN UR (test code = PU) TRACE NEGATIVE A UROBIL UR (test code = UROQ) 1.0 EU/dL 0.2-1.0 NITRITE UR (test code = NEGATIVE NEGATIVE NITRITE) BLOOD UR (test code = UA BLOOD) NEGATIVE NEGATIVE LEUK ES UR (test code = LEUK) 1+ NEGATIVE A WBC UR (test code = UWBC) 2 /HPF 0-3 RBC UR (test code = URBC) 0 /HPF 0-2 EPITH UR (test code = UEPC) FEW /LPF NONE A BACTERIA UR (test code = UBACT) MODERATE /HPF NONE A CAST UR (test code = CAST) /LPF NONE CRYSTAL UR (test code = CRYU) / LPF NONE MUCUS UR (test code = MUC) / HPF NONE AMORPH UR (test code = JUAN CARLOS) / HPF NONE TRICH UR (test code = UTRICH) /HPF NONE YEAST UR (test code = UY) /HPF NONE SPERM UR (test code = USPERM) /HPF NONE CBC (INCLUDES AUTOMATED DIFFERENTIAL)2016-08-09 12:10:00 Test Item Value Reference Range Interpretation Comments WBC (test code = WBC) 9.5 10\S\3/uL 4.5-13.0 RBC (test code = RBC) 5.39 10\S\6/uL 4.10-5.20 H HGB (test code = HBG) 16.5 g/dL 11.5-15.5 H HCT (test code = HCT) 45.3 % 35.0-45.0 H MCV (test code = MCV) 84.0 fL 77.0-95.0 MCH (test code = MCH) 30.6 pg 25.0-33.0 MCHC (test code = MCHC) 36.4 g/dL 31.0-37.0 RDW (test code = RDW) 12.1 % 11.5-14.5 PLT (test code = PLT) 281 10\S\3/uL 130-400 MPV (test code = MPV) 9.8 fL 9.4-12.4 NEUTROP # (test code = NE#) 6.5 10\S\3/uL 2.0-8.0 LYMPH # (test code = LY#) 2.3 10\S\3/uL 1.2-4.0 MONOCYTE # (test code = MO#) 0.6 10\S\3/uL 0.0-1.1 EOSINOPH # (test code = EO#) 0.1 10\S\3/uL 0.0-0.7 BASOPHIL # (test code = BA#) 0.1 10\S\3/uL 0.0-0.3 IG # (test code = IG#) 0.03 10\S\3/uL 0.00-0.06 NRBC # (test code = NRBC#) 0.00 10\S\3/uL 0.00-0.01 NEUTROPH % (test code = NE%) 68.1 % 35.0-73.0 LYMPH % (test code = LY%) 24.0 % 20.0-55.0 MONO % (test code = MO%) 6.2 % 2.5-10.0 EOSINOPH % (test code = EO%) 0.9 % 0.0-5.0 BASOPHIL % (test code = BA%) 0.5 % 0.0-2.0 IG % (test code = IG%) 0.3 % 0.0-0.8 NRBC% (test code = NRBC%) 0.0 % 0.0-0.2 MANDIFF (test code = MDIFF) NO NO RBC MORPH (test code = RBCMOR) NORMAL
--- NOTE | 2022-01-22 20:41 | EDPHYS ---
Physician Documentation [facility] Name: Vishnu Duckworth Jr Age: 21 yrs Sex: Male : 2000 Arrival Date: 01/22/2022 Time: 20:02 Bed 17 Private MD: ED Physician Florentin Thomas HPI: 01/22 20:39 This 21 yrs old Male presents to ER via Ambulatory with complaints of hiccups. pm1 20:39 Onset: The symptoms/episode began/occurred last night. Associated signs and symptoms: pm1 The patient has no apparent associated signs or symptoms. Modifying factors: The patient symptoms are alleviated by food and fluids. Mother gave him some sugar with water and his hiccups resolved. Hiccups returned today after eating some spicy [place] food for dinner. Hiccups resolved now. The patient has not experienced similar symptoms in the past. The patient has not recently seen a physician. Historical: - Allergies: 20:13 No Known Allergies; kd3 - PMHx: 20:13 Premature ; kd3 - Immunization history:: Adult Immunizations up to date. - Social history:: Smoking status: Patient denies any tobacco usage or history of. ROS: 20:39 Constitutional: Negative for fever, chills, and weight loss, Cardiovascular: Negative pm1 for chest pain, palpitations, and edema, Respiratory: Negative for shortness of breath, cough, wheezing, and pleuritic chest pain. 20:39 Back: Negative for injury and pain, MS/Extremity: Negative for injury and deformity, Skin: Negative for injury, rash, and discoloration, Neuro: Negative for headache, weakness, numbness, tingling, and seizure. 20:39 Abdomen/GI: Positive for hiccups, Negative for abdominal pain, nausea, vomiting, and diarrhea, constipation. 20:39 All other systems are negative. Exam: 20:39 Constitutional: This is a well developed, well nourished patient who is awake, alert, pm1 and in no acute distress. Patient without any hiccups present during evaluation 20:39 Head/Face: Normocephalic, atraumatic. 20:39 Back: No spinal tenderness. No costovertebral tenderness. Full range of motion. Skin: Warm, dry with normal turgor. Normal color with no rashes, no lesions, and no evidence of cellulitis. MS/ Extremity: Pulses equal, no cyanosis. Neurovascular intact. Full, normal range of motion. 20:39 Eyes: Exam is negative for acute changes, Extraocular movements: no acute changes, Conjunctiva: no acute changes, no injection. 20:39 ENT: Exam is negative for acute changes, Mouth: no acute changes, Lips: normal, moist, Oral mucosa: normal, pink and intact, moist. 20:39 Cardiovascular: Exam negative for acute changes, Rate: normal, Rhythm: regular, Pulses: no pulse deficits are appreciated. 20:39 Respiratory: Exam negative for acute changes, respiratory distress, shortness of breath. 20:39 Neuro: Exam negative for acute changes, Orientation: is normal, Mentation: is normal, Motor: Vital Signs: 20:10 BP 125 / 75; Pulse 83; Resp 17; Temp 99(TE); Pulse Ox 100% on R/A; Weight 54.43 kg; kd3 21:01 BP 130 / 81; Pulse 91; Resp 18; Pulse Ox 99% on R/A; kl MDM: 20:16 Patient medically screened. [facility] 20:39 Data reviewed: vital signs. Data interpreted: Pulse oximetry: on room air is 100 %. pm1 Interpretation: normal. Counseling: I had a detailed discussion with the patient and/or guardian regarding: the historical points, exam findings, and any diagnostic results supporting the discharge/admit diagnosis, the need for outpatient follow up, to return to the emergency department if symptoms worsen or persist or if there are any questions or concerns that arise at home. Administered Medications: 21:00 Drug: Reglan (metoCLOPramide) 10 mg Route: PO; kl 21:00 Follow up: Response: No adverse reaction; Marked relief of symptoms kl Disposition Summary: 01/22/22 20:40 Discharge Ordered Location: Home pm1 Problem: new pm1 Symptoms: have improved pm1 Condition: Stable pm1 Diagnosis - Hiccough pm1 Followup: pm1 - With: Emergency Department - When: As needed - Reason: Worsening of condition Followup: pm1 - With: Private Physician - When: 2 - 3 days - Reason: Recheck today's complaints, Continuance of care, Re-evaluation by your physician Discharge Instructions: - Discharge Summary Sheet pm1 - Luizps pm1 Forms: - Medication Reconciliation Form pm1 - Thank You Letter pm1 - Antibiotic Education pm1 - Prescription Opioid Use pm1 Signatures: Teresa Cortes, Florentin Cruz RN, MD MD cha Marinas, Patrick, PC MAINTENANCE TECHNICIAN PC MAINTENANCE TECHNICIAN pm1 Skye Hendricks RN RN kd3
--- NOTE | 2022-01-22 20:41 | ER ---
Nurse's Notes [facility] Name: Vishnu Duckworth Jr Age: 21 yrs Sex: Male : 2000 Arrival Date: 01/22/2022 Time: 20:02 Bed 17 Private MD: Diagnosis: Hiccough Presentation: 01/22 20:10 Chief complaint: Patient states: The hiccups started yesterday. It stopped a little bit kd3 but they're back. I tried to give him sugar and water and he ate but they just wont go away. He has had this problem before and they gave him some pills. Coronavirus screen: Vaccine status: Patient reports receiving the 2nd dose of the covid vaccine. Ebola Screen: No symptoms or risks identified at this time. Initial Sepsis Screen: Does the patient meet any 2 criteria? No. Patient's initial sepsis screen is negative. Does the patient have a suspected source of infection? No. Patient's initial sepsis screen is negative. Risk Assessment: Do you want to hurt yourself or someone else? Patient reports no desire to harm self or others. Onset of symptoms was January 22, 2022. 20:10 Method Of Arrival: Ambulatory kd3 20:10 Acuity: BROWN 4 kd3 Triage Assessment: 20:13 General: Appears uncomfortable, Behavior is calm, cooperative. Pain: Complains of pain kd3 in diaphragm. Neuro: Level of Consciousness is awake, alert, obeys commands. Respiratory: Airway is patent Trachea midline Respiratory effort is even, unlabored, Respiratory pattern is regular, symmetrical. GI: No signs and/or symptoms were reported involving the gastrointestinal system. Historical: - Allergies: 20:13 No Known Allergies; kd3 - PMHx: 20:13 Premature ; kd3 - Immunization history:: Adult Immunizations up to date. - Social history:: Smoking status: Patient denies any tobacco usage or history of. Screenin:01 [facility] ED Fall Risk Assessment (Adult) History of falling in the last 3 months, kl including since admission No falls in past 3 months (0 pts) Confusion or Disorientation No (0 pts) Intoxicated or Sedated No (0 pts) Impaired Gait No (0 pts) Mobility Assist Device Used No (0 pt) Altered Elimination Score/Fall Risk Level 0 - 2 = Low Risk Oriented to surroundings, Maintained a safe environment, Assessed \T\ reinforced patient's understanding of fall precautions, Hourly rounding (assess needs \T\ fall precautionary measures) done. Abuse screen: Denies threats or abuse. Nutritional screening: No deficits noted. Tuberculosis screening: No symptoms or risk factors identified. Fall Risk No fall in past 12 months (0 pts). Assessment: 20:40 General: Appears in no apparent distress. comfortable, Behavior is calm, cooperative. kl Pain: Denies pain. Neuro: No deficits noted. Cardiovascular: No deficits noted. Respiratory: No deficits noted. GI: Reports tolerance of fluids, tolerance of food, hiccups. : No deficits noted. No signs and/or symptoms were reported regarding the genitourinary system. EENT: No deficits noted. Vital Signs: 20:10 BP 125 / 75; Pulse 83; Resp 17; Temp 99(TE); Pulse Ox 100% on R/A; Weight 54.43 kg; kd3 21:01 BP 130 / 81; Pulse 91; Resp 18; Pulse Ox 99% on R/A; ED Course: 20:02 Patient arrived in ED. 20:08 Landon Keller NP is PHCP. pm1 20:08 Florentin Thomas MD is Attending Physician. pm1 20:13 Triage completed. kd3 20:13 Arm band placed on right wrist. kd3 21:01 No provider procedures requiring assistance completed. Patient did not have IV access kl during this emergency room visit. Administered Medications: 21:00 Drug: Reglan (metoCLOPramide) 10 mg Route: PO; 21:00 Follow up: Response: No adverse reaction; Marked relief of symptoms Medication: 21:01 VIS not applicable for this client. Outcome: 20:40 Discharge ordered by . pm1 21:02 Discharged to home ambulatory, with family. kl 21:02 Condition: stable 21:02 Discharge instructions given to patient, head screen worker, Instructed on discharge instructions, follow up and referral plans. Demonstrated understanding of instructions, follow-up care. 21:02 Patient left the ED. Signatures: Teresa Cortes RN RN kl Salyer, Edna es Marinas, Patrick, NP COLLAR TACKER pm1 Skye Hendricks RN RN kd3
[2022-01-22] MEDS ORDERED: METOCLOPRAMIDE 5 MG TAB ONE (20:51)
[2022-01-22 21:06] VITALS: TEMP 99
[2022-01-22 21:08] VITALS: BP 130/81; O2SAT 99
== END 2022-01-22 21:02 | disposition home or self-care (01) ==
LOC: ER 19:50
DX: R06.6 Hiccough (principal)
CPT/HCPCS: 99283